=== PATIENT | male | born 1935 | race African-American/Black ===

== ENCOUNTER 2016-03-26 08:57 | Emergency (ER) | payer OTHER ==
[~2016-03-26] VITALS: Ht 182.9 cm; Wt 99.8 kg
[2016-03-26 09:40] VITALS: BP 137/69
[2016-03-26] MEDS ORDERED: AZIT250T6 PO (10:09)
[2016-03-26] MEDS ORDERED: PRED-220 PO (10:09)
[2016-03-26] MEDS ORDERED: BENZ100C PO (10:09)
--- NOTE | 2016-03-26 10:09 | PHYS DOC ---
Adult General Chief Complaint Chief Complaint: COUGH HPI HPI Patient is a 80 year old male who presents the emergency room today with complaint of a productive cough and congestion that began approximately 4 days ago. Patient states that he has been exposed other family members with similar symptoms. HE states that he believes his condition is improving, however he wanted to come in and be evaluated to ensure that it doesn't worsen. Patient denies history of pulmonary disease. Patient has a history of cardiac disease in which she has a single stent. He also has had one episode of congestive heart failure exacerbations approximately 10 years ago. He denies any repeat episodes of this. Patient currently denies any chest pain, palpitations, exertional dyspnea, orthopnea or PND. Patient denies fevers and chills. Patient denies foreign travel, hospitalization or antibiotic use within the past 90 days. Review of Systems Review of Systems Constitutional: Denies fever or chills [] Eyes: Denies change in visual acuity, redness, or eye pain [] HENT: Denies nasal congestion or sore throat [] Respiratory: Denies cough or shortness of breath [] Cardiovascular: No additional information not addressed in HPI [] GI: Denies abdominal pain, nausea, vomiting, bloody stools or diarrhea [] : Denies dysuria or hematuria [] Musculoskeletal: Denies back pain or joint pain [] Integument: Denies rash or skin lesions [] Neurologic: Denies headache, focal weakness or sensory changes [] Endocrine: Denies polyuria or polydipsia [] Physical Exam Physical Exam Constitutional: Well developed, well nourished, no acute distress, non-toxic appearance. [] HENT: Normocephalic, atraumatic, bilateral external ears normal, oropharynx moist, no oral exudates, nose normal. Eyes: PERRLA, EOMI, conjunctiva normal, no discharge. [] Neck: Normal range of motion, no tenderness, supple, no stridor. [] Cardiovascular:Heart rate regular rhythm, no murmur. PMI is slightly displaced laterally. There is no JVD or extremity edema. Lungs & Thorax: Patient exhibits no evidence respiratory distress or respiratory fatigue. There is no posturing. Patient is able speak in full, unbroken sentences. Lung sounds are clear to auscultation bilaterally. Abdomen: Bowel sounds normal, soft, no tenderness, no masses, no pulsatile masses. [] Skin: Warm, dry, no erythema, no rash. [] Back: No tenderness, no CVA tenderness. [] Extremities: No tenderness, no cyanosis, no clubbing, ROM intact, no edema. [] Neurologic: Alert and oriented X 3, normal motor function, normal sensory function, no focal deficits noted. [] Psychologic: Affect normal, judgement normal, mood normal. [] EKG EKG [] Radiology/Procedures Radiology/Procedures [] Course & Med Decision Making Course & Med Decision Making Pertinent Labs and Imaging studies reviewed. (See chart for details) [] Dragon Disclaimer Dragon Disclaimer This electronic medical record was generated, in whole or in part, using a voice recognition dictation system. Departure Departure Impression: Primary Impression: Bronchitis Disposition: 01 HOME, SELF-CARE Condition: GOOD Patient Instructions: Acute Bronchitis, [id number] Additional Instructions: 1. Take the medication as prescribed. 2. Review the discharge instructions for reasons to return to the emergency room. 3. Call your primary care doctor's office in the morning to schedule follow-up appointment. Scripts Prednisone 10 Mg [id number] Mg PO DAILY 5 Days Prov:CRISTIAN KEATING 03/26/16 Azithromycin (Azithromycin Tablet)250 Mg Tablet1 Pkg PO UD #6 TAB Prov:CRISTIAN KEATING 03/26/16 Benzonatate (Tessalon Perle)100 Mg [id number] Mg PO TID PRN COUGH 5 Days Prov:CRISTIAN KEATING 03/26/16 CRISTIAN KEATING Mar 26, 2016 10:09
== END 2016-03-26 10:52 | disposition home or self-care (01) ==
LOC: ER 08:57
DX: J40 Bronchitis, not specified as acute or chronic (principal); I50.9 Heart failure, unspecified; Z95.5 Presence of coronary angioplasty implant and graft
CPT/HCPCS: 99283

== ENCOUNTER → 2018-08-06 | Outpatient (CLI) | payer OTHER ==
[~2018-08-06] MED LIST: AZIT250T6 PO; BENZ100C PO; IOHEXOL 300 MG/ML 100ML VIAL. IV ONE; LISI2.5T PO; METO25TA4 PO; PRED-220 PO
--- NOTE | 2018-08-06 12:38 | KCIC ---
EXAM: Abdomen and pelvis CT urogram with and without intravenous contrast. HISTORY: Hematuria. Frequent urinary tract infections. TECHNIQUE: Computed tomographic images of the abdomen and pelvis were obtained prior to and following the administration of 95 cc Omnipaque 300 intravenous contrast. Multiplanar reformatting was performed. *One or more of the following individualized dose reduction techniques were utilized for this examination: 1. Automated exposure control. 2. Adjustment of the mA and/or kV according to patient size. 3. Use of iterative reconstruction technique. COMPARISON: None. FINDINGS: Evaluation of the lower thorax demonstrates posterior dependent and basilar atelectasis. There is no infiltrate or pleural effusion. There is cardia mentally. There is coronary artery atherosclerosis. There is mild hepatomegaly. No suspicious hepatic lesion is seen. The gallbladder and pancreas are unremarkable. There are splenules adjacent to an otherwise unremarkable spleen. There is slight thickening of the amie of the left adrenal gland, without a discrete nodule. There is no evidence of nephroureterolithiasis. There is a partially duplicated left renal collecting system which combines the level of the ureteropelvic junction. This is a normal variant. There is no evidence of obstructive uropathy. There are right renal vascular calcifications. No solid or cystic renal lesion is seen. There is focal narrowing of the distal right ureter at the level of the ureterovesical junction. This may be due to peristalsis. There is urinary bladder wall thickening and deformation of the bladder base due to nodular enlargement of the prostate. Evaluation for intrinsic bladder mucosal lesion is limited due to the timing of postcontrast imaging. This is due to patient request to void prior to the standard imaging time. There is no appendicitis. There is no bowel obstruction. There is colonic diverticulosis without diverticulitis. There is a small umbilical hernia containing fat and a short segment of small bowel. There is no evidence of bowel incarceration or mechanical obstruction. There is no lymphadenopathy. There is an infrarenal abdominal aortic aneurysm measuring 5.6 cm. There is abdominal aortic and aortic branch vessel atherosclerotic plaque. There is no suspicious osseous lesion. There is a transitional lumbosacral segment which articulates with the underlying sacrum, a normal variant. 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 IMPRESSION: 1. Mild urinary bladder wall thickening. This may be due to cystitis or chronic outlet obstruction given the presence of prostatomegaly. Evaluation for a bladder wall lesion is limited due to the timing of postcontrast imaging. This was due to the patient request to void prior to standard imaging time. No convincing urothelial lesion is seen. 2. No evidence of nephroureterolithiasis. 3. 5.6 cm abdominal aortic aneurysm. 4. Colonic diverticulosis. Electronically signed by: Supriya Moore MD (08/06/2018 12:35 PM) [facility]
== END | disposition home or self-care (01) ==
LOC: KCIC CT 09:52
PROVIDERS: ATTEND Urology
DX: I71.4 Abdominal aortic aneurysm, without rupture (principal); J98.11 Atelectasis; I25.10 Atherosclerotic heart disease of native coronary artery without angina pectoris; N13.5 Crossing vessel and stricture of ureter without hydronephrosis; N40.0 Benign prostatic hyperplasia without lower urinary tract symptoms; K57.30 Diverticulosis of large intestine without perforation or abscess without bleeding; K42.9 Umbilical hernia without obstruction or gangrene; R16.0 Hepatomegaly, not elsewhere classified; I10 Essential (primary) hypertension; E11.9 Type 2 diabetes mellitus without complications; Z79.01 Long term (current) use of anticoagulants; Z87.440 Personal history of urinary (tract) infections
CPT/HCPCS: 74178; 82565; Q9967